=== PATIENT | male | born 1970 | race African-American/Black ===

== ENCOUNTER 2016-07-16 12:53 | Emergency (ER) | payer SELFPAY ==
[~2016-07-16] VITALS: Ht 200.7 cm; Wt 131.5 kg
[~2016-07-16 12:53] MED LIST: ASPI81TA2 PO; HYDR12.58 PO; LEVO500T38 PO; LISI5TAB PO; POTA10CA PO
[2016-07-16] MEDS ORDERED: BENZONATATE 100 MG CAPSULE. PO ONE (14:00)
--- NOTE | 2016-07-16 14:45 | RAD ---
Exam: PA and lateral chest radiograph History: Cough, possible defibrillator activation. Comparison: 06/22/2014. Findings: Cardiomediastinal silhouette is within normal limits for size. Bilateral lung ball are free of focal infiltrate. No pleural effusion is seen. Single lead AICD by left subclavian approach is again seen. Impression: No acute cardiopulmonary process.
--- NOTE | 2016-07-16 14:59 | EKG ---
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
[2016-07-16] MEDS ORDERED: BENZ100C PO (16:15)
[2016-07-16] MEDS ORDERED: PROAIR HFA8.5 GM INH (16:15)
--- NOTE | 2016-07-16 16:15 | PHYS DOC ---
Past Medical History Past Medical History: Arrhythmia, Hypertension, [place] Past Surgical History: Other Additional Past Surgical Histo: AICD 2013, CARDIAC ARREST Additional Information: 03/25 ppd Alcohol Use: Rarely Drug Use: Cocaine Adult General Chief Complaint Chief Complaint: MULTIPLE COMPLAINTS HPI HPI Patient is a 45 year old male who presents with cough. The patient reports 3 day history of dry cough, nasal congestion, muffled hearing to right ear, loose stools. States yesterday he coughed "really hard" & thinks his defibrillator fired because he felt a shock travel through his body. No chest pain at that time or at time of my exam. Denies fevers/chills, shortness of breath, vomiting , abdominal pain, lower extremity pain/swelling. History of cardiac arrest, cocaine abuse, has AICD but no recent cardiology follow up. Review of Systems Review of Systems Constitutional: Denies fever or chills HENT: Reports nasal congestion, denies sore throat Respiratory: Reports cough, denies shortness of breath Cardiovascular: Denies chest pain or edema, reports possible AICD shock GI: Denies abdominal pain, nausea, vomiting, reports diarrhea Musculoskeletal: Denies back pain or joint pain Integument: Denies rash or skin lesions Neurologic: Denies headache Current Medications Current Medications Current Medications Medications (Trade) Dose Ordered Sig/Dianelys Start Time Stop Time Status Last Admin Dose Admin Benzonatate (Tessalon Perle) 100 mg 1X ONCE 07/16/16 14:00 07/16/16 14:02 DC 07/16/16 15:03 100 MG Allergies Allergies Allergies Coded Allergies Type Severity Reaction Last Updated Verified No Known Drug Allergies 06/22/14 No Physical Exam Physical Exam Constitutional: obese, no acute distress, non-toxic appearance. HENT: Normocephalic, atraumatic, bilateral external ears normal, TMs clear bilaterally, oropharynx moist, no tonsillar enlargement/exudate, nose normal. Eyes: conjunctiva normal, no discharge. Neck: supple, no stridor. Cardiovascular: RRR, no murmurs, no edema. Lungs & Thorax: LCTAB, no wheezing, no respiratory distress. no chest wall tenderness Abdomen: soft, nontender, nondistended. Skin: Warm, dry, no erythema, no rash. Back: No tenderness. Extremities: No tenderness, no edema. no calf tenderness or swelling. Neurologic: Alert and oriented X 3, no focal deficits noted. Psychologic: Affect normal, judgement normal, mood normal. Current Patient Data Vital Signs Vital Signs Date Time Temp Pulse Resp B/P Pulse Ox O2 Delivery O2 Flow Rate FiO2 07/16/16 16:51 70 18 152/98 96 Room Air 07/16/16 13:14 97.9 97.9 EKG EKG interpreted by me: NSR rate 71, no acute St/T wave changes, normal intervals, no ectopy.[] Radiology/Procedures Radiology/Procedures PROCEDURE: CHEST PA & LATERAL Exam: PA and lateral chest radiograph History: Cough, possible defibrillator activation. Comparison: 06/22/2014. Findings: Cardiomediastinal silhouette is within normal limits for size. Bilateral lung ball are free of focal infiltrate. No pleural effusion is seen. Single lead AICD by left subclavian approach is again seen. Impression: No acute cardiopulmonary process. DICTATED and SIGNED BY: LEIGH TUCKER MD DATE: 07/16/16 1544 Course & Med Decision Making Course & Med Decision Making Pertinent Labs and Imaging studies reviewed. (See chart for details) The patient presents with cough & possible AICD shock. Well appearing, stable vitals, normal oxygen saturation, clear breath sounds. CXR shows no infiltrate , symptoms consistent with URI, will manage symptoms. Patient doesn't have card for AICD, doesn't initially know what brand of device, ultimately able to call a friend or family member & confirm that it is [employer]. The device was interrogated after this information was obtained, no recent defibrillation, having runs of SVT, no acute issues related to patient's symptoms yesterday. Recommend supportive care for URI - rest, hydration, tylenol/ibuprofen for fever , tessalon perles for cough, follow up with Dr. Greenwood in primary care clinic in 2-3 days, with Dr. Rogers in cardiology clinic (or if preferred, at [facility] cardiology) in about 1 week. Come back for severe shortness of breath or chest pain, or any otherwise worsening condition. Discharged home in stable condition. [] Dragon Disclaimer Dragon Disclaimer This electronic medical record was generated, in whole or in part, using a voice recognition dictation system. Departure Departure Impression: Primary Impression: Cough Additional Impression: AICD problem Disposition: HOME, SELF-CARE Condition: STABLE Referrals: NO PCP (PCP) ANJU GREENWOOD MD, NALINI G MD Patient Instructions: Cough, Adult, [id number] Additional Instructions: You were seen in the emergency department today for cough. You do not have pneumonia. Your pacemaker did not fire. Please use inhaler and Tessalon Perles as needed for symptoms. Be sure to drink lots of fluids, take Tylenol or ibuprofen for pain or fever. Follow-up with Dr. Greenwood in the primary care clinic within 2-3 days, make an appointment with Dr. Rogers in the cardiology clinic. Return to the emergency department for severe chest pain or shortness of breath, any otherwise worsening condition. Scripts Albuterol Sulfate (Proair Hfa Inhaler)8.5 Gm Hfa.[id number].ad1 Puff INH PRN Q6HRS PRN SHORTNESS OF BREATH #1 INHALER Prov:FRANCES GARDNER MD 07/16/16 Benzonatate (Tessalon Perle)100 Mg [id number] Mg PO TID PRN COUGH #10 CAP Prov:FRANCES GARDNER MD 07/16/16 Problem Qualifiers FRANCES GARDNER MD Jul 16, 2016 16:15
[2016-07-16 16:51] VITALS: BP 152/98
== END 2016-07-16 16:54 | disposition home or self-care (01) ==
LOC: ER 12:53
DX: R05 Cough (principal); F14.10 Cocaine abuse, uncomplicated; I10 Essential (primary) hypertension; H93.8X1 Other specified disorders of right ear; F17.200 Nicotine dependence, unspecified, uncomplicated; I25.2 Old myocardial infarction; Z86.74 Personal history of sudden cardiac arrest; Z95.810 Presence of automatic (implantable) cardiac defibrillator
CPT/HCPCS: 71020; 93005; 99284-25

== ENCOUNTER 2016-10-11 06:24 | Emergency (ER) | payer MEDICAID ==
[~2016-10-11] VITALS: Ht 200.7 cm; Wt 142.9 kg
[~2016-10-11 06:24] MED LIST changes: +ASPI-630 PO; -ASPI81TA2 PO; +BENZ100C PO; -LEVO500T38 PO; +LEVO500T59 PO; -POTA10CA PO; +POTASSIUM CHLO10 MEQ PO; +PROAIR HFA8.5 GM INH
[2016-10-11] MEDS ORDERED: 0.9 % SODIUM CHLORIDE 10 ML DISP.SYRIN. IV PRN (06:45)
--- NOTE | 2016-10-11 06:46 | PHYS DOC ---
Past Medical History Past Medical History: Arrhythmia, Hypertension, [place] Past Surgical History: Other Additional Past Surgical Histo: AICD 2013, CARDIAC ARREST Alcohol Use: Rarely Drug Use: Cocaine Adult General Chief Complaint Chief Complaint: SORE THROAT HPI HPI This is a pleasant 45-year-old -[place] male who presents with globus- hystericus that began about 3 AM this morning. Patient has had prior events like this in the past described as a fullness in the right side of his throat with is a catching and he feels like he is choking. He denies any pain, fevers, chills, cough, runny nose, or congestion. He denies the anterior neck swelling change in his voice, new medications, or chest pain. Patient denies any shortness of breath, nausea, vomiting, or diarrhea. he is very anxious about this feeling in his throat. There is no sick contacts, recent travel outside the country, no recent antibiotics. He does have a significant history of prior ND, with AICD placed, and a history of hypertension. Review of Systems Review of Systems Constitutional: Denies fever or chills [] Eyes: Denies change in visual acuity, redness, or eye pain [] HENT: Denies nasal congestion or he does complain of fullness in his throat on the right Respiratory: Denies cough or shortness of breath [] Cardiovascular: No additional information not addressed in HPI [] GI: Denies abdominal pain, nausea, vomiting, bloody stools or diarrhea [] : Denies dysuria or hematuria [] Musculoskeletal: Denies back pain or joint pain [] Integument: Denies rash or skin lesions [] Neurologic: Denies headache, focal weakness or sensory changes [] Endocrine: Denies polyuria or polydipsia [] Current Medications Current Medications Current Medications Medications (Trade) Dose Ordered Sig/Dianelys Start Time Stop Time Status Last Admin Dose Admin Dexamethasone Sodium Phosphate (Decadron) 10 mg 1X ONCE 10/11/16 07:00 10/11/16 07:01 DC 10/11/16 06:44 10 MG Info (Do NOT chart on this entry -- for MONITORING) 1 each PRN DAILY PRN 10/11/16 07:30 10/13/16 07:29 Iohexol (Omnipaque 300 Mg/ml) 75 ml 1X ONCE 10/11/16 07:30 10/11/16 07:31 DC 10/11/16 07:33 75 ML Lorazepam (Ativan) 1 mg 1X ONCE 10/11/16 07:00 10/11/16 07:01 DC 10/11/16 06:46 1 MG Potassium Chloride (Klor-Con) 10 meq STAT STAT 10/11/16 07:22 10/11/16 07:23 DC 10/11/16 07:44 10 MEQ Sodium Chloride (Normal Saline Flush) 10 ml QSHIFT PRN 10/11/16 06:45 Allergies Allergies Allergies Coded Allergies Type Severity Reaction Last Updated Verified No Known Drug Allergies 06/22/14 No Physical Exam Physical Exam Patient's vital signs were reviewed. On arrival patient noted to be very hypertensive Constitutional: Well developed, well nourished, patient is anxious with a very sensitive gag reflex HENT: Normocephalic, atraumatic, bilateral external ears normal, oropharynx moist, possible slight edema to the right tonsillar pillar mild erythema no oral exudates, nose normal. [] Eyes: PERRLA, EOMI, conjunctiva normal, no discharge. [] Neck: Normal range of motion, no tenderness, supple, no stridor. [] Cardiovascular:Heart rate regular rhythm, no murmur [] Lungs & Thorax: Bilateral breath sounds clear to auscultation [] Skin: Warm, dry, no erythema, no rash. [] Extremities: No tenderness, Neurologic: Alert and oriented X 3, normal motor function, normal sensory function, no focal deficits noted. [] Psychologic: he very anxious but consolable Current Patient Data Vital Signs Vital Signs Date Time Temp Pulse Resp B/P (MAP) Pulse Ox O2 Delivery O2 Flow Rate FiO2 10/11/16 06:29 98.6 90 16 98 Room Air 98.6 Lab Values Laboratory Tests Test 10/11/16 06:40 White Blood Count 4.4 x10^3/uL (4.0-11.0) Red Blood Count 5.19 x10^6/uL (4.30-5.70) Hemoglobin 14.8 g/dL (13.0-17.5) Hematocrit 44.6 % (39.0-53.0) Mean Corpuscular Volume 86 fL (79-100) Mean Corpuscular Hemoglobin 29 pg (25-35) Mean Corpuscular Hemoglobin Concent 33 g/dL (31-37) Red Cell Distribution Width 14.3 % (11.5-14.5) Platelet Count 224 x10^3/uL (140-400) Neutrophils (%) (Auto) 42 % (31-73) Lymphocytes (%) (Auto) 42 % (24-48) Monocytes (%) (Auto) 9 % (0-9) Eosinophils (%) (Auto) 7 % (0-3) H Basophils (%) (Auto) 1 % (0-3) Neutrophils # (Auto) 1.9 x10^3uL (1.8-7.7) Lymphocytes # (Auto) 1.8 x10^3/uL (1.0-4.8) Monocytes # (Auto) 0.4 x10^3/uL (0.0-1.1) Eosinophils # (Auto) 0.3 x10^3/uL (0.0-0.7) Basophils # (Auto) 0.0 x10^3/uL (0.0-0.2) Sodium Level 144 mmol/L (136-145) Potassium Level 2.6 mmol/L (3.5-5.1) *L Chloride Level 105 mmol/L (98-107) Carbon Dioxide Level 31 mmol/L (21-32) Anion Gap 8 (6-14) Blood Urea Nitrogen 15 mg/dL (8-26) Creatinine 1.7 mg/dL (0.7-1.3) H Estimated GFR (Cockcroft-Gault) 52.5 BUN/Creatinine Ratio 9 (6-20) Glucose Level 113 mg/dL (70-99) H Calcium Level 9.0 mg/dL (8.5-10.1) Total Bilirubin 0.5 mg/dL (0.2-1.0) Aspartate Amino Transferase (AST) 49 U/L (15-37) H Alanine Aminotransferase (ALT) 74 U/L (16-63) H Alkaline Phosphatase 97 U/L (46-116) Total Protein 7.4 g/dL (6.4-8.2) Albumin 3.6 g/dL (3.4-5.0) Albumin/Globulin Ratio 0.9 (1.0-1.7) L Laboratory Tests 10/11/16 06:40 Laboratory Tests 10/11/16 06:40 EKG EKG [] Radiology/Procedures Radiology/Procedures [] [facility] [address] [place], [place] [id number] IMAGING REPORT Signed PATIENT: JAQUELINE CHAN ACCOUNT: [id number] : 1970 LOCATION: ER AGE: 45 SEX: M EXAM STATUS: REG ER ORD. PHYSICIAN: JOSUE BASS MD REASON: globus hystericus on the right side PROCEDURE: CT SOFT TISSUE NECK W/CONTRAST Indication difficulty swallowing. Sore throat predominantly the right side. Assess for potential underlying abscess. Contrast imaging through the neck was performed. 60 cc of Omnipaque 300 was administered intravenously. The visualized brain appears unremarkable. The visualized nasal sinuses appear unremarkable. 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 It measures approximately 1.6 cm in greatest dimension. There are multiple nodules involving the thyroid most consistent with goiter. If additional evaluation of the thyroid is warranted ultrasound could be performed. Significant adenopathy in the neck is not seen. Acute finding is not apparent. No abscess is seen. IMPRESSION: No acute finding seen in the neck. 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 Probable multinodular goiter PQRS Compliance Statement: One or more of the following individualized dose reduction techniques were utilized for this examination: 1. Automated exposure control 2. Adjustment of the mA and/or kV according to patient size 3. Use of iterative reconstruction technique DICTATED and SIGNED BY: SALEEM MILLER MD DATE: 10/11/16 0757 CC: JOSUE BASS MD; NO PCP ~ Course & Med Decision Making Course & Med Decision Making Pertinent Labs and Imaging studies reviewed. (See chart for details) Impression presents with sensation of globus hysteric this. There is no obvious signs of exudate may be a slight edema of the right tonsillar pillar. He does have a very exaggerated gag reflex on physical exam. We will provide him something for his anxiety, he will be given a dose of Decadron to reduce the swelling and his perceived on exam and a CAT scan of the neck to either with soft tissue swelling of the right tonsillar pillar. Differential diagnosis includes retropharyngeal abscess, peritonsillar abscess, globus hystericus, strep pharyngitis, tonsillar hypertrophy, angioedema, allergic reaction, foreign body. Is now 8:[address] as been reviewed by me demonstrates a saccular aneurysm of the arch of the aorta. Also demonstrates a multinodular likely quarter within the thyroid. We'll encourage patient to follow both of these images up with per. 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 At this point patient's been reinterviewed Patient tells me that their symptoms given during CC are improved. We reviewed labs and radiology reports with patient and any family at bedside. I have informed him of this saccular aneurysm and the need for follow-up ultrasound of his neck for his multinodular goiter. Patient and I discussed treatment for his hypokalemia oral paste with therapy and follow-up with his primary care doctor get retested in 1 week. Impression: Globus hystericus, multinodular goiter, hypertension, hypokalemia, small a saccular aneurysm aortic arch disPosition: He is to be follow-up for ultrasound of his neck maintenance of his hypertension and recheck of his hypokalemia Dragon Disclaimer Dragon Disclaimer This electronic medical record was generated, in whole or in part, using a voice recognition dictation system. Departure Departure Impression: Primary Impression: Globus hystericus Additional Impressions: Hypokalemia Hypertension Disposition: 01 HOME, SELF-CARE Condition: IMPROVED Referrals: NO PCP (PCP) Patient Instructions: Globus Syndrome, Goiter, Hypertension, Hypokalemia Additional Instructions: His follow-up your doctor for referral for an ultrasound of her neck to look at the multiple nodules and your thyroid gland. Please follow-up with your buttonhole marker for tracking and monitoring your saccular aneurysm at the aorta. This follow-up with her regular doctor after taking treatment for your hyperkalemia for repeat check. Please return for new or increasing symptoms. Scripts Potassium Chloride (POTASSIUM CHLORIDE) 10 Meq Capsule.er 10 MEQ PO DAILY for 10 Days, #10 TAB.SR Prov: JOSUE BASS MD 10/11/16 Problem Qualifiers JOSUE BASS MD Oct 11, 2016 06:45
[2016-10-11 06:49] LABS: BASO % 1 % (0-3); EOS % 7 % (0-3); HEMATOCRIT 44.6 % (39.0-53.0); HEMOGLOBIN 14.8 g/dL (13.0-17.5); LYMPH # 1.8 x10^3/uL (1.0-4.8); LYMPH % 42 % (24-48); MEAN CORPUSCULAR HEMOGLOBIN 29 pg (25-35); MEAN CORPUSCULAR HGB CONC 33 g/dL (31-37); MEAN CORPUSCULAR VOLUME 86 fL (79-100); MONO % 9 % (0-9); NEUT % 42 % (31-73); PLATELET COUNT 224 x10^3/uL (140-400); RED BLOOD COUNT 5.19 x10^6/uL (4.30-5.70); RED CELL DISTRIBUTION WIDTH 14.3 % (11.5-14.5); WHITE BLOOD COUNT 4.4 x10^3/uL (4.0-11.0)
[2016-10-11] MEDS ORDERED: DEXAMETHASONE SOD PHOS 20 MG/5 ML VIAL. IV ONE (07:00)
[2016-10-11] MEDS ORDERED: IV NORMAL SALINE 1000ML BAG 1,000 ML IV SCH (07:00)
[2016-10-11 07:07] LABS: ALBUMIN 3.6 g/dL (3.4-5.0); ALBUMIN/GLOBULIN RATIO 0.9 (1.0-1.7); CREATININE 1.7 mg/dL (0.7-1.3); GFR 52.5; TOTAL BILIRUBIN 0.5 mg/dL (0.2-1.0); TOTAL PROTEIN 7.4 g/dL (6.4-8.2)
[2016-10-11 07:12] LABS: POTASSIUM 2.6 mmol/L (3.5-5.1)
[2016-10-11] MEDS ORDERED: POTASSIUM CHLORIDE 20 MEQ TABLET.ER. PO STA (07:22)
[2016-10-11] MEDS ORDERED: IOHEXOL 300 MG/ML 75 ML VIAL IV ONE (07:30)
[2016-10-11] MEDS ORDERED: CONTRAST GIVEN MC PRN (07:30)
[2016-10-11 07:49] VITALS: BP 185/112
--- NOTE | 2016-10-11 08:05 | RAD ---
Indication difficulty swallowing. Sore throat predominantly the right side. Assess for potential underlying abscess. Contrast imaging through the neck was performed. 60 cc of Omnipaque 300 was administered intravenously. The visualized brain appears unremarkable. The visualized nasal sinuses appear unremarkable. 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 It measures approximately 1.6 cm in greatest dimension. There are multiple nodules involving the thyroid most consistent with goiter. If additional evaluation of the thyroid is warranted ultrasound could be performed. Significant adenopathy in the neck is not seen. Acute finding is not apparent. No abscess is seen. IMPRESSION: No acute finding seen in the neck. 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 Probable multinodular goiter PQRS Compliance Statement: One or more of the following individualized dose reduction techniques were utilized for this examination: 1. Automated exposure control 2. Adjustment of the mA and/or kV according to patient size 3. Use of iterative reconstruction technique
[2016-10-11] MEDS ORDERED: POTASSIUM CHLO10 MEQ PO (08:17)
[2016-10-11 08:20] LABS: NEGATIVE OBC STREP NEG; POSITIVE OBC STREP POS
== END 2016-10-11 08:25 | disposition home or self-care (01) ==
LOC: ER 06:24
DX: F45.8 Other somatoform disorders (principal); E87.6 Hypokalemia; I10 Essential (primary) hypertension; I71.2 Thoracic aortic aneurysm, without rupture; F41.9 Anxiety disorder, unspecified; E04.2 Nontoxic multinodular goiter; I25.2 Old myocardial infarction; F14.10 Cocaine abuse, uncomplicated; Z95.810 Presence of automatic (implantable) cardiac defibrillator
CPT/HCPCS: 36415; 70491; 80053; 85027; 87070; 87880; 96361; 96374; 96375; 99285; J1100; J2060; J7030; Q9967

== ENCOUNTER 2017-04-27 05:10 | Emergency (ER) | payer MEDICAID ==
[2017-04-27 05:29] LABS: ADD MAN DIFF? NO
[2017-04-27 05:40] LABS: BASO % 1 % (0-3); EOS # 0.2 x10^3/uL (0.0-0.7); EOS % 4 % (0-3); HEMATOCRIT 42.7 % (39.0-53.0); HEMOGLOBIN 14.6 g/dL (13.0-17.5); LYMPH # 2.5 x10^3/uL (1.0-4.8); LYMPH % 40 % (24-48); MEAN CORPUSCULAR HEMOGLOBIN 29 pg (25-35); MEAN CORPUSCULAR HGB CONC 34 g/dL (31-37); MEAN CORPUSCULAR VOLUME 84 fL (79-100); MONO # 0.4 x10^3/uL (0.0-1.1); MONO % 7 % (0-9); NEUT # 3.1 x10^3uL (1.8-7.7); NEUT % 49 % (31-73); PLATELET COUNT 254 x10^3/uL (140-400); RED BLOOD COUNT 5.06 x10^6/uL (4.30-5.70); RED CELL DISTRIBUTION WIDTH 14.6 % (11.5-14.5); WHITE BLOOD COUNT 6.4 x10^3/uL (4.0-11.0)
[2017-04-27 05:51] LABS: ANION GAP 8 (6-14); BLOOD UREA NITROGEN 16 mg/dL (8-26); CALCIUM 8.8 mg/dL (8.5-10.1); CARBON DIOXIDE 31 mmol/L (21-32); CHLORIDE 100 mmol/L (98-107); CREATININE 1.6 mg/dL (0.7-1.3); GFR 56.1; GLUCOSE 188 mg/dL (70-99); POTASSIUM 3.2 mmol/L (3.5-5.1); SODIUM 139 mmol/L (136-145)
[2017-04-27 05:59] LABS: TROPONINI < 0.017 ng/mL (0.000-0.055)
[2017-04-27] MEDS: ACETAMINOPHEN 500 MG TABLET PO ×2 (06:10)
[2017-04-27 07:02] LABS: INFLUENZA A PATIENT NEGATIVE (NEGATIVE); INFLUENZA B PATIENT NEGATIVE (NEGATIVE); OBC FLU VALID
== END 2017-04-27 07:24 | disposition home or self-care (01) ==
LOC: ER 05:10
DX: M79.1 Myalgia (principal); I10 Essential (primary) hypertension; F14.10 Cocaine abuse, uncomplicated
CPT/HCPCS: 36415; 71046; 80048; 84484; 85025; 87804; 87804-59; 93005; 99285-25

== ENCOUNTER 2017-06-11 02:55 | Emergency (ER) | payer SELFPAY, MEDICAID ==
[2017-06-11] MEDS: DIPHTH,PERTUSS(ACELL),TET TOX 0.5 ML DISP.SYRIN. VAX IM (03:33)
[2017-06-11] MEDS: LIDOCAINE WITH 8.4% SOD BICARB 3 ML DISP.SYRIN. INJ ×2 (03:34→03:44)
== END 2017-06-11 04:03 | disposition home or self-care (01) ==
LOC: ER 02:55
DX: S62.625A Displaced fracture of middle phalanx of left ring finger, initial encounter for closed fracture (principal); I25.10 Atherosclerotic heart disease of native coronary artery without angina pectoris; I10 Essential (primary) hypertension; F17.200 Nicotine dependence, unspecified, uncomplicated; F14.10 Cocaine abuse, uncomplicated; Z95.810 Presence of automatic (implantable) cardiac defibrillator; W18.39XA Other fall on same level, initial encounter; Y93.89 Activity, other specified; Y92.009 Unspecified place in unspecified non-institutional (private) residence as the place of occurrence of the external cause; Y99.8 Other external cause status
CPT/HCPCS: 29125; 73130; 90471; 90715; 99284-25

== ENCOUNTER 2019-03-01 06:44 | Emergency (ER) | payer MEDICAID ==
[~2019-03-01] VITALS: Ht 200.7 cm; Wt 142.9 kg
[~2019-03-01 06:44] MED LIST changes: +ALBU2.5V8 INH; +CEPH-264 PO; +NAPR-683 PO; +POTA10TA12 PO; -POTASSIUM CHLO10 MEQ PO; -PROAIR HFA8.5 GM INH
[2019-03-01 07:05] VITALS: BP 183/130
[2019-03-01] MEDS ORDERED: CYCLOBENZAPRINE 10 MG TABLET. PO ONE (07:30)
[2019-03-01] MEDS ORDERED: HYDROcodone/APAP 5/325MG 1 TAB TABLET PO ONE (07:30)
[2019-03-01] MEDS ORDERED: AMOX500C PO (07:41)
[2019-03-01] MEDS ORDERED: CYCL10TA2 PO (07:41)
[2019-03-01] MEDS ORDERED: OXYM30SP25 NS (07:41)
[2019-03-01] MEDS ORDERED: HYDR-3164 PO (07:41)
--- NOTE | 2019-03-01 07:42 | PHYS DOC ---
Past Medical History Past Medical History: CAD, Hypertension Additional Past Medical Histor: PT REPORTS AORTIC ANEURYSM Past Surgical History: Other Additional Past Surgical Histo: DEFIBRILLATOR PLACED Additional Information: / DAY Alcohol Use: Occasionally Drug Use: None Adult General Chief Complaint Chief Complaint: Congestion HPI HPI Patient is a 48 year old male patient with history of hypertension and coronary artery disease who presents with complaint of sinus infection. Patient complaining of nasal congestion with sinus pressure and left ear pain for 2 weeks without fever, cough, shortness of breath, nausea and vomiting Patient states he thinks he had sinus infection. Patient state for the last couple days had pain in left side of his neck with radiation to left shoulder that getting worse with movement of his head without having injury. Patient denies focal neuro deficit, chest pain, shortness of breath. Review of Systems Review of Systems Constitutional: Denies fever or chills [] Eyes: Denies change in visual acuity, redness, or eye pain [] HENT: Reports nasal congestion and earache Respiratory: Denies cough or shortness of breath [] Cardiovascular: No additional information not addressed in HPI [] GI: Denies abdominal pain, nausea, vomiting, bloody stools or diarrhea [] : Denies dysuria or hematuria [] Musculoskeletal: Reports neck pain Integument: Denies rash or skin lesions [] Neurologic: Denies headache, focal weakness or sensory changes [] Endocrine: Denies polyuria or polydipsia [] All other systems were reviewed and found to be within normal limits, except as documented in this note. Allergies Allergies Allergies Coded Allergies Type Severity Reaction Last Updated Verified No Known Drug Allergies 06/22/14 No Physical Exam Physical Exam Constitutional: Well developed, well nourished, mild distress, non-toxic appearance. [] HENT: Normocephalic, atraumatic, bilateral external ears normal, oropharynx moist, no oral exudates, left maxillary sinus tenderness, nasal congestion[] Eyes: PERRLA, EOMI, conjunctiva normal, no discharge. [] Neck: Painful range of motion, no midline tenderness , supple, no stridor. [] Cardiovascular:Heart rate regular rhythm, no murmur [] Lungs & Thorax: Bilateral breath sounds clear to auscultation [] Back: No tenderness, no CVA tenderness. [] Extremities: No tenderness, no cyanosis, no clubbing, ROM intact, no edema. [] Neurologic: Alert and oriented X 3, normal motor function, normal sensory function, no focal deficits noted. [] Psychologic: Affect normal, judgement normal, mood normal. [] Current Patient Data Vital Signs Vital Signs Date Time Temp Pulse Resp B/P (MAP) Pulse Ox O2 Delivery O2 Flow Rate FiO2 03/01/19 07:05 98.6 75 17 183/130 (147) 98 Room Air 98.6 EKG EKG [] Radiology/Procedures Radiology/Procedures [] Course & Med Decision Making Course & Med Decision Making Evaluation of patient in ER showed 48-year-old male patient with complaining of nasal congestion and sinus pain for 2 weeks and left-sided neck pain with movement for the last 2 days. Patient had left paracervical muscle spasm. Patient treated with Flexeril and [place] in ER. Patient had blood pressure of 174/104 and as stated he didn't take his blood pressure medication this morning. Plan discharge patient home with diagnose of cervical muscle strain and acute sinusitis. He was advised to take his home blood pressure medication. Dragon Disclaimer Dragon Disclaimer This electronic medical record was generated, in whole or in part, using a voice recognition dictation system. Departure Departure Impression: Primary Impression: Acute sinusitis Additional Impressions: Acute cervical myofascial strain Accelerated hypertension Disposition: HOME, SELF-CARE (at 0 [phone]) Condition: STABLE Referrals: UNKNOWN PCP NAME (PCP) Patient Instructions: Cervical Strain and Sprain with [facility], Form - Blood Pressure Record Sheet, How to Take Your Blood Pressure, Dzok-ex-Ktto, Managing Your High Blood Pressure, Sinusitis Additional Instructions: Apply ice on your neck Follow-up with your primary care physician in 3-5 days Return to ER if not getting better Take your home blood pressure medication Scripts Hydrocodone/Apap 5-325 (NORCO 5-325 TABLET) 1 Each Tablet 1 TAB PO PRN Q6HRS PRN for PAIN, #10 TAB 0 Refills Prov: YAYA CASH MD 03/01/19 Cyclobenzaprine Hcl (CYCLOBENZAPRINE HCL) 10 Mg Tablet 1 TAB PO TID, #21 TAB Prov: YAYA CASH MD 03/01/19 Amoxicillin (AMOXICILLIN) 500 Mg Capsule 1 CAP PO Q8HRS for infection, #30 CAP Prov: YAYA CASH MD 03/01/19 Oxymetazoline Hcl (AFRIN) 30 Ml [place] 2 SPR NS QID for nasal congestion, #1 SPRAY Prov: YAYA CASH MD 03/01/19 Problem Qualifiers Primary Impression: Acute sinusitis Sinusitis location: maxillary Recurrence: not specified as recurrent Qualified Codes: J01.00 - Acute maxillary sinusitis, unspecified Additional Impressions: Acute cervical myofascial strain Encounter type: subsequent encounter Qualified Codes: S16.1XXD - Strain of muscle, fascia and tendon at neck level, subsequent encounter YAYA CASH MD Mar 01, 2019 07:42
== END 2019-03-01 08:05 | disposition home or self-care (01) ==
LOC: ER 06:44
DX: S16.1XXA Strain of muscle, fascia and tendon at neck level, initial encounter (principal); J01.00 Acute maxillary sinusitis, unspecified; I10 Essential (primary) hypertension; I25.10 Atherosclerotic heart disease of native coronary artery without angina pectoris; Z95.810 Presence of automatic (implantable) cardiac defibrillator; F17.200 Nicotine dependence, unspecified, uncomplicated; X50.9XXA Other and unspecified overexertion or strenuous movements or postures, initial encounter; Y93.89 Activity, other specified; Y92.89 Other specified places as the place of occurrence of the external cause; Y99.8 Other external cause status
CPT/HCPCS: 99283